=== PATIENT | female | born 1980 | race Caucasian/White ===

== ENCOUNTER 2023-10-03 09:26 | Emergency (ER) | payer OTHER ==
[2023-10-03 09:58] VITALS: RESP 18
[2023-10-03] MEDS: KETOROLAC 15 MG/ML 1 ML VIAL IVP STA ×2 (10:31→11:53)
[2023-10-03] MEDS: METOCLOPRAMIDE 5 MG/ML 2 ML VIAL IVP STA (10:33)
[2023-10-03] MEDS: DEXAMETHASONE SOD PHOSPHATE 10 MG/ML 1 ML VIAL IVP STA (10:35)
[2023-10-03] MEDS: diphenhydrAMINE 50 MG/ML 1 ML VIAL IVP STA (10:37)
[2023-10-03] MEDS: SODIUM CHLORIDE 0.9% 1,000 ML IV STA (10:39)
--- NOTE | 2023-10-03 11:44 | ED ---
Head Injury HPI - General Chief complaint: Head Injury Stated complaint: Fall - head injury Time Seen by Provider: 10/03/23 09:39 Source: patient, family, RN notes reviewed Mode of arrival: ambulatory Limitations: no limitations - History of Present Illness Initial comments: This is a 43 year old female who presents to the emergency department for a head injury. States that she injured her head about a week ago after hitting it on a ladder sticking out of her boyfriend's truck. She did not have any loss of consciousness and is not taking any blood thinners. She had a CT scan of her brain afterwards that was normal. Yesterday she went to [facility] as she has continued to have headaches and problems with her memory. She had a negative CT scan then and was advised to follow-up with neurology. She was also given a prescription for naproxen, which she states has not been helpful. States that she cannot get into neurology for several months and would like an MRI. - Related Data Previous Rx's Medication Instructions Recorded Diclofenac Sodium [Voltaren] 75 mg PO BID PRN #30 tab 10/03/23 Ondansetron Odt [Zofran Odt] 4 mg PO Q8HR PRN #15 tab 10/03/23 methocarbamoL [Robaxin-750] 1,500 mg PO TID PRN #30 tab 10/03/23 Allergies/Adverse reactions: Allergies Allergy/AdvReac Type Severity Reaction Status Date / Time latex Allergy Rash/Hives Verified 10/03/23 09:36 Review of Systems ROS Statement: Those systems with pertinent positive or pertinent negative responses have been documented in the HPI. ROS Other: All systems not noted in ROS Statement are negative. Past Medical History Past Medical History: Asthma History of Any Multi-Drug Resistant Organisms: None Reported Past Psychological History: No Psychological Hx Reported Smoking Status: Never smoker Past Alcohol Use History: Occasional Past Drug Use History: None Reported General Exam Limitations: no limitations General appearance: alert, in no apparent distress Head exam: Present: atraumatic, normocephalic, normal inspection Eye exam: Present: normal appearance, PERRL, EOMI. Absent: scleral icterus, conjunctival injection, periorbital swelling Respiratory exam: Present: normal lung sounds bilaterally. Absent: respiratory distress, wheezes, rales, rhonchi, stridor Cardiovascular Exam: Present: regular rate, normal rhythm, normal heart sounds. Absent: systolic murmur, diastolic murmur, rubs, gallop, clicks Neurological exam: Present: alert, oriented X3, CN II-XII intact Psychiatric exam: Present: normal affect, normal mood Skin exam: Present: warm, dry, intact, normal color. Absent: rash Course Vital Signs 10/03/23 10/03/23 10/03/23 09:30 11:25 13:00 Temperature 98 F 98.3 F Pulse Rate 78 97 77 Respiratory 18 18 18 Rate Blood Pressure 96/51 109/67 O2 Sat by Pulse 96 98 99 Oximetry 10/03/23 15:36 Temperature 97.8 F Pulse Rate 97 Respiratory 18 Rate Blood Pressure 124/78 O2 Sat by Pulse 98 Oximetry Medical Decision Making - Medical Decision Making This is a 43 year old female who presents to the emergency department for a head injury. Was pt. sent in by a medical professional or institution? @ -No Did you speak to anyone other than the patient for history? @ -No Did you review nursing and triage notes? @ -Yes, and I agree, it is accurate with regards to the patient's symptoms. Were old charts reviewed? @ -No Differential Diagnosis? @ -Differential Diagnosis Head Injury: Contusion, hematoma, intracranial hemorrhage, skull fracture, whiplash, concussion, this is not meant to be an all-inclusive list. EKG interpreted by me (3pts min.)? @ -Not obtained X-rays interpreted by me (1pt min.)? @ -Not obtained CT interpreted by me (1pt min.)? @ -Not obtained U/S interpreted by me (1pt. min.)? @ -Not obtained What testing was considered but not performed? (CT, X-rays, U/S, labs)? Why? @ -None What meds were considered but not given? Why? @ -None Did you discuss the management of the patient with other professionals? @ -No Did you reconcile home meds? @ -No Was smoking cessation discussed for >3mins.? @ -No Was critical care preformed (if so, how long)? @ -No Were there social determinants of health that impacted care today? How? (Homelessness, low income, unemployed, alcoholism, drug addiction, tr ansportation, low edu. Level, literacy, decrease access to med. care, long term, rehab)? @ -No Was there de-escalation of care discussed even if they declined? (Discuss DNR or withdrawal of care, Hospice)? @ -No What co-morbidities impacted this encounter? (DM, HTN, Smoking, COPD, CAD, Cancer, CVA, Hep., AIDS, mental health diagnosis, sleep apnea, morbid obesity)? @ -None Was patient admitted / discharged? @ -Discharged. Patient wearing sunglasses and earplugs on arrival. She also brought with her paperwork from the other emergency department visits. Given that she is already had 2 CT scans following a head injury that is not necessarily a severe mechanism of injury, advised that we do not need repeat imaging at this time. We also discussed that mood changes, memory problems, and headaches are to be expected following a concussion or other head injury. Family was fairly adamant on an MRI and neurology consultation. Advised that this is not something that can be fixed quickly and takes time to recover from. There is no intervention or benefit that a neurology consultation would add to this. Advised that she needs to avoid screens, get plenty of rest, drink lots of fluids, and avoid alcohol and caffeine. Pain medication administered in the emergency department. Prescription for diclofenac, Zofran, and Robaxin provided with dosing instructions reviewed. Patient discharged home in stable condition and advised to follow-up with neurology and her primary care provider on an outpatient basis. Undiagnosed new problem with uncertain prognosis? @ -None Drug Therapy requiring intensive monitoring for toxicity (Heparin, Nitro, Insulin, Cardizem)? @ -None Were any procedures done? @ -None Diagnosis/symptom? @ -Head injury, concussion Acute, or Chronic, or Acute on Chronic? @ -Acute Uncomplicated (without systemic symptoms) or Complicated (systemic symptoms)? @ -Uncomplicated Side effects of treatment? @ -None Exacerbation, Progression, or Severe Exacerbation] @ -Not applicable Poses a threat to life or bodily function? @ -The concussion may impact her functioning for the mean time. Return precautions reviewed in depth, the patient is instructed to return to the emergency department with any new, worsening, or concerning symptoms. Patient ve rbalized understanding. This case was discussed in detail with the attending ED physician, Dr. Fajardo. Presentation, findings, and treatment plan discussed in detail as well. Disposition Clinical Impression: Closed head injury Disposition: HOME SELF-CARE Instructions (If sedation given, give patient instructions): Concussion (ED), Head Injury (ED) Additional Instructions: Return to the emergency department with any new, worsening, or concerning symptoms. Try taking the diclofenac in place of the naproxen that was prescribed. You can take the Robaxin as 1 to 2 tablets up to 3-4 times daily, however be aware that this may make you drowsy. Take the Zofran up to every 8 hours as needed for nausea and vomiting. Concussions can take several weeks to recover from, and unfortunately there is nothing that can be done from a neurologist perspective to make this improve faster. You need to avoid using screens, get plenty of rest, and drink plenty of fluids. Avoid caffeine and alcohol. Pain and problems with mood and memory are all very common with concussions as well and will continue to improve. Follow up with your primary care provider in 1-2 days. Prescriptions: methocarbamoL [Robaxin-750] 1,500 mg PO TID PRN #30 tab PRN Reason: Pain Diclofenac Sodium [Voltaren] 75 mg PO BID PRN #30 tab PRN Reason: Pain Ondansetron Odt [Zofran Odt] 4 mg PO Q8HR PRN #15 tab PRN Reason: Nausea And Vomiting Is patient prescribed a controlled substance at d/c from ED?: No Referrals: None,Stated [Primary Care Provider] - 1-2 days Time of Disposition: 15:16
[2023-10-03] MEDS: HYDROmorphone 1 MG/ML 1 ML SYRINGE IVP STA (11:53)
[2023-10-03 15:45] VITALS: BP 124/78; PULSE 97; TEMP 97.8
== END 2023-10-03 15:38 | disposition home or self-care (01) ==
LOC: EC 09:26
DX: S06.0X0A Concussion without loss of consciousness, initial encounter (principal); R40.2362 Coma scale, best motor response, obeys commands, at arrival to emergency department; R40.2142 Coma scale, eyes open, spontaneous, at arrival to emergency department; R40.2252 Coma scale, best verbal response, oriented, at arrival to emergency department; Z91.040 Latex allergy status; W19.XXXA Unspecified fall, initial encounter; W22.8XXA Striking against or struck by other objects, initial encounter
CPT/HCPCS: 99283; 96374; 96375 ×5; 96376; 96361; J1200; J1100; J2765; J3360; J1170; J1885